=== PATIENT | female | born 1980 | race Caucasian/White ===

== ENCOUNTER 2019-02-08 07:55 | Emergency (ER) | payer MEDICAID, OTHER ==
[~2019-02-08] VITALS: Ht 160 cm; Wt 80.0 kg
[2019-02-08] MEDS ORDERED: IBUPROFEN 600MG TABLET PO ONE (08:45)
[2019-02-08] MEDS ORDERED: TETANUS, DIPHTHERIA, PERTUSSIS VAC/PF 0.5ML (>7YR OLD) IM ONE (08:45)
[2019-02-08] MEDS ORDERED: HYDROCODONE/ACETAMINOPHEN 5/325MG TABLET PO ONE (11:15)
[2019-02-08 13:08] VITALS: BP 101/51
== END 2019-02-08 13:27 | disposition home or self-care (01) ==
LOC: ER 08:01
DX: S82.832A Other fracture of upper and lower end of left fibula, initial encounter for closed fracture (principal); V03.00XA Pedestrian on foot injured in collision with car, pick-up truck or van in nontraffic accident, initial encounter; Y93.89 Activity, other specified; Y92.488 Other paved roadways as the place of occurrence of the external cause
CPT/HCPCS: 29515; 73590; 73610; 81025; 90471; 90715; 99283